=== PATIENT | male | born 1965 | race Caucasian/White ===

== ENCOUNTER 2017-12-29 01:46 | Inpatient (IN) | payer OTHER, BC ==
[2017-12-28 13:36] LABS: INR 1.04
[2017-12-29] VITALS (10 sets, daily range): BP systolic 104–143; BP diastolic 75–91
[~2017-12-29] VITALS: Ht 177.8 cm; Wt 108.9 kg
[~2017-12-29 01:46] MED LIST: AMLO-104 PO; HYDR-2966 PO; LEVO200T44 PO
[2017-12-29] MEDS: NORMOSOL R SOLN(*) 1000 ML BAG 1,000 ML IV PRN ×2 (07:40→16:30)
[2017-12-29] MEDS ORDERED: PROPOFOL EMUL(*) 10MG/ML 20 ML 40 ML ONE (08:31)
[2017-12-29] MEDS ORDERED: LIDOCAINE MPF 1% 5 ML VIAL ONE (08:31)
[2017-12-29] MEDS ORDERED: ONDANSETRON 4 MG/2 ML VIAL ONE (08:31)
[2017-12-29] MEDS ORDERED: METOCLOPRAMIDE 10 MG/2 ML SDV ONE (08:31)
[2017-12-29] MEDS ORDERED: DEXAMETHASONE SOD 4 MG/ML VIAL ONE (08:31)
[2017-12-29] MEDS ORDERED: fentaNYL CITR 100 MCG/2 ML AMP ONE ×3 (08:32→14:48)
[2017-12-29] MEDS ORDERED: cloNIDine EPIDUR INJ 100MCG/ML 40 MCG, ROPIVACAINE 0.5% 20 ML VIAL 25 ML, EPINEPHrine H... INJ ONE ×2 (08:50)
[2017-12-29] MEDS ORDERED: MIDAZOLAM 2 MG/2 ML VIAL IVP PRN (08:50)
[2017-12-29] MEDS ORDERED: TRANEXAMIC AC 1000 MG/10ML SDV 1,000 MG in DEXTROSE 5% 50 ML BAG 50 ML IV ONE (08:50)
[2017-12-29] MEDS ORDERED: ACETAMINOPHEN 500 MG TAB PO ONE (08:50)
[2017-12-29] MEDS ORDERED: LIDOCAINE/SOD BICARB 8.4% SYR ID ONE (08:50)
[2017-12-29] MEDS ORDERED: PREGABALIN 150 MG CAPSULE PO ONE (08:50)
[2017-12-29] MEDS ORDERED: CELECOXIB 200 MG CAP PO ONE (08:50)
[2017-12-29] MEDS ORDERED: FAMOTIDINE 20 MG TAB PO ONE (08:50)
[2017-12-29] MEDS ORDERED: ceFAZolin(*) 2GM/D5W 50ML 50 ML IVPB ONE (08:50)
[2017-12-29] MEDS ORDERED: PHENYLEPHRINE 10 MG/1 ML VIAL ONE (09:58)
[2017-12-29] MEDS ORDERED: NS(*) 0.9% 100 ML BAG 0 ML ONE (09:59)
[2017-12-29] MEDS ORDERED: ePHEDrine 25 MG/5 ML DISP.SYR IVP ONE (10:16)
[2017-12-29] MEDS ORDERED: PROMETHAZINE 25 MG/ML 1 ML AMP IVP PRN (14:30)
[2017-12-29] MEDS ORDERED: ZOLPIDEM TARTRATE 5 MG TAB PO PRN (14:30)
[2017-12-29] MEDS ORDERED: NORMOSOL R SOLN(*) 1000 ML BAG 1,000 ML IV PRN (14:30)
[2017-12-29] MEDS ORDERED: FLUSH 10 ML SYR IVP PRN (14:30)
[2017-12-29] MEDS ORDERED: MORPHINE 2 MG/ML SYR IVP PRN (14:30)
[2017-12-29] MEDS ORDERED: NALOXONE HCL 0.4 MG/ML VIAL IVP PRN (14:30)
[2017-12-29] MEDS ORDERED: MAGNESIUM HYDROXIDE* 30ML UDCP PO PRN (14:30)
[2017-12-29] MEDS ORDERED: BISACODYL 10 MG SUPP PR PRN (14:30)
[2017-12-29] MEDS ORDERED: KETOROLAC 30 MG/ML VIAL ONE (14:49)
[2017-12-29] MEDS ORDERED: HYDROmorphone HCL 2 MG/ML SDV ONE (15:07)
--- NOTE | 2017-12-29 15:15 | RADIOLOGY IMAGING REPORT ---
FACILITY: [facility] PATIENT NAME: Uriah Fang : 1965 MR: [id number] V: [id number] EXAM DATE: ORDERING PHYSICIAN: GLENNA BOWERS TECHNOLOGIST: Location: [facility] [place] Patient: Uriah Fang : 1965 Visit/Account:[id number] Date of Sevice: 12/29/2017 Technique: KNEE 1 OR 2 VIEW BILATERAL HISTORY: S/P BILATERAL TOTAL KNEE ARTHROPLASTY NEED A P Comparison studies: Right knee MRI May 02, 2009 report FINDINGS: Present are bilateral knee arthroplasties. The alignment of the right and left knee arthro plasties are maintained. No acute fracture. Expected adjacent operative changes are present. IMPRESSION: 1. Bilateral knee arthroplasties without evidence of acute hardware complication.. Report Dictated By: Wilton Patel DO at 12/29/2017 3:10 PM Report E-Signed By: Wilton Patel DO at 12/29/2017 3:12 PM WSN:[id number]
[2017-12-29] MEDS ORDERED: ACETAMINOPHEN(*)1000 MG/100 ML 100 ML IVPB ONE (16:42)
--- NOTE | 2017-12-29 17:25 | Hospitalist Consultation ---
History of Present Illness Requesting Physician Dr. Palma Reason for Consult Medical Management Chief Complaint s/p bilateral knee replacement History of Present Illness He was admitted s/p bilateral knee replacement. It is reported the surgery went well and without complication. History Problems: (1) Hypothyroidism Status: Chronic (2) Hypertension Status: Chronic Home Meds Reported Medications Amlodipine Besylate (NORVASC) 10 Mg Tablet, 1 TAB PO QDAY, TAB 12/24/17 Levothyroxine Sodium (SYNTHROID) 200 Mcg Tablet, 200 MCG PO QDAY 12/24/17 Hydrochlorothiazide (HYDROCHLOROTHIAZIDE) 25 Mg Tablet, 0.5 TAB PO QDAY, TAB 12/24/17 Allergies: Coded Allergies: No Known Drug Allergies (Unverified , 12/24/17) Hx Smoking: No Smoking Status: Never Smoker Caffeine/Cups Per Day: OCCASIONAL Hx Alcohol Use: Yes Alcohol Used: Beer Hx Substance Use Disorder: No Social Drug Use: Never History of IV Drug Use: No Review of Systems All Systems Reviewed/Normal: Yes, Except as Noted Musculoskeletal: Pain (right knee pain) Exam Vital Signs Vital Signs Date Time Temp Pulse Resp B/P (MAP) Pulse Ox O2 Delivery O2 Flow Rate FiO2 12/29/17 15:30 77 14 96 12/29/17 08:32 98.6 143/84 (103) Room Air General Appearance: Alert, Awake, No Acute Distress, Afebrile Neuro: No Gross deficits Cardiovascular: Regular Rate and Rhythm Respiratory: No Respiratory Distress, Clear to Auscultation Psych: Alert & Oriented X3, Appropriate Mood & Affect Assessment and Plan Problems: (1) Status post bilateral knee replacements Status: Acute Assessment & Plan: Followed by Dr. Palma. He has no history of DVT or PE. He will be placed on Aspirin 325 mg daily for DVT prophylaxis. (2) Hypertension Status: Chronic Assessment & Plan: He is on chronic treatment with amlodipine and hydrochlorothiazide. He will be started on amlodipine with hold parameters. We will hold hydrochlorothiazide at this time. (3) Hypothyroidism Status: Chronic Assessment & Plan: He is on chronic treatment with levothyroxine. Venous Thromboembolism Antithrombotics Is Pt On Any Antithrombotics?: No Problem Qualifiers (1) Hypertension: Hypertension type: essential hypertension Qualified Codes: I10 - Essential ( primary) hypertension CARLEEN AGUIRRE YOUTH CARE WORKER Dec 29, 2017 17:25
[2017-12-29] MEDS: ceFAZolin(*) 2GM/D5W 50ML 50 ML IVPB SCH (17:32)
[2017-12-29] MEDS: MORPHINE SULFATE 30 MG PCA IV PRN (18:03)
[2017-12-30] MEDS: ACETAMINOPHEN 500 MG TAB PO SCH ×3 (00:40→17:41)
[2017-12-30] MEDS: ceFAZolin(*) 2GM/D5W 50ML 50 ML IVPB SCH ×2 (00:40→08:35)
[2017-12-30] MEDS: KETOROLAC TROM 10MG TAB PO PRN ×2 (01:27→10:09)
[2017-12-30] MEDS: ONDANSETRON 4 MG/2 ML VIAL IVP PRN ×2 (01:27→16:23)
--- NOTE | 2017-12-30 04:24 | OPERATIVE REPORT 1 ---
EVENT DATE: December 29, 2017 SURGEON: Robert Palma MD ANESTHESIOLOGIST: Evens Juares MD ANESTHESIA: Spinal followed by general. COMMUNITY WORKER: Sandro Bang PA-C PREOPERATIVE DIAGNOSIS Left knee traumatic degenerative joint disease. POSTOPERATIVE DIAGNOSIS Left knee traumatic degenerative joint disease. PROCEDURE PERFORMED Left total knee arthroplasty. IMPLANTS MicroPort medial pivot shift CS system with a 5 femur, 6 tibia, 10 mm CS insert , 8 x 32 mm symmetric patella, femur cut 6 degrees valgus, 10 mm. Patient received 1 gram of tranexamic acid 10 minutes prior to start and at the finish of the second knee implantation. We used DonJoy cobalt blue cement, two packages. We utilized 50 mL of our standard Toradol/ropivacaine cocktail and ZipLine wound closure system. SPECIMENS None. COMPLICATIONS None. ESTIMATED BLOOD LOSS Less than 200 mL. OPERATION Patient received appropriate preoperative antibiotic, was brought to the OR, where Dr. Juares performed spinal followed by general anesthesia. Bilateral lower extremities were then prepped and draped in the usual sterile fashion. Starting at the left knee, we made a midline incision, followed by medial parapatellar arthrotomy. Dissection was carried out along the medial plateau to the level of the semimembranosus insertion. Fat pad excised, patella released and everted. Knee hyperflexed. ACL and PCL released subperiosteally by Bovie. Remaining articular cartilage was removed from the distal femoral condyles by sagittal saw, then a step cut drill was utilized to broach the femoral canal. Distal femoral alignment guide was then positioned, and cutting block set up at 6 degrees valgus, 10 mm. Appropriate retractors were placed, distal cut made. A 3 degree external rotation sizing guide was then placed, referencing off the anterior flange, epicondyles, posterior condyles. Femur was sized to a #5, and external rotation holes were drilled. The 4-in-1 cutting block was positioned followed by Z retractors and four cuts made with care taken to protect the soft tissue. Tibia was brought anteriorly on the femur with appropriate retractors. We then utilized an extramedullary guide, setting this up for slope, varus, valgus and rotation, referencing 10 mm off the least involved lateral tibial plateau. This block was pinned in placed, and with care taken to protect the soft tissues, we made our tibial cut. Stump of the ACL and PCL and medial and lateral meniscus were removed by Bovie. Posterior osteophytes were removed by curved osteotome, and capsule elevated by a Reaves elevator. Trial tibial base positioned, referencing from the previous rotation , pinned into placed. We then took a 10 mm insert, then our #5 femur. We achieved extension, flexion to 140 degrees, stability through varus, valgus stress, and solid end point and anterior drawer. Knee brought up in full extension. Patella was measured, and we cut down 8 mm with the guide. Peg hold guide was positioned inferiorly medially, peg holes drilled for a 32 x 8 symmetric patella. Trial patella placed, knee flexed and peg holes drilled, followed by our pegs. We cut for our trochlear chip, which was then placed. Again we had the aforementioned range of motion and stability. Patella tracked well. Patella, femur, trial tibial base plate were removed. Appropriate retractors were placed. We set up our tower for our keel. This was then cut, reamed and punched. This construct was then removed, bone plug placed in the distal femur, and then we mixed two packages of DonJoy cobalt blue cement while we injected 10 mL of our cocktail into the posterior capsule, then copiously irrigated by pulse lavage. Then, setting up the knee, we cemented the tibia, followed by our 10 mm insert, then our femur. Excess cement was removed. Knee brought up to full extension with axial compression while we cemented the patella, and this took approximately 15 minutes to cure. Again, we had the aforementioned range of motion and stability. We copiously irrigated by pulse lavage and injected the remaining cocktail in the distal quad mechanism. Knee placed at 30 degrees as we had at the approach, and arthrotomy closed with #2 Vicryl followed by 2-0 Vicryl for subcutaneous tissues and ZipLine wound closure for skin at 45 degrees. A compressive dressing was applied. This dressing was protected through the remaining portion of the procedure, which was a right total knee. After that was completed, patient was extubated and taken to recovery in stable condition, where the hospitalist team was consulted for medical management and anticoagulation, PT and OT for rehab. RUBA
[2017-12-30 05:40] VITALS: BP 106/72
[2017-12-30] MEDS: LEVOTHYROXINE SOD 0.1 MG TAB PO SCH (05:45)
[2017-12-30 07:32] VITALS: BP 97/74
[2017-12-30] MEDS: amLODIPine BESYL(*) 5 MG TAB PO SCH (08:34)
[2017-12-30] MEDS: ASPIRIN 325 MG TAB PO SCH (08:34)
--- NOTE | 2017-12-30 09:58 | Hospitalist Progress Note ---
Subjective Progress Notes Subjective He has no concerns this morning. He had no acute events overnight. Patient Complains of: Cardiovascular: No: Chest Pain Respiratory: No: Shortness of Breath Physical Exam Vital Signs Date Time Temp Pulse Resp B/P (MAP) Pulse Ox O2 Delivery O2 Flow Rate FiO2 12/30/17 09:31 16 94 12/30/17 07:45 Nasal Cannula 1.0 12/30/17 07:32 99.1 79 97/74 (82) Intake and Output 12/31/17 06:59 Intake Total 832 ml Balance 832 ml Intake Oral 240 ml IV Total 592 ml General Appearance: Alert, Awake, No Acute Distress, Afebrile Neuro: No Gross deficits Cardiovascular: Regular Rate and Rhythm Respiratory: No Respiratory Distress, Clear to Auscultation Psych: Alert & Oriented X3, Appropriate Mood & Affect Result Diagram: 12/30/17 0555 Assessment and Plan Problems: (1) Status post bilateral knee replacements Status: Acute Assessment & Plan: Followed by Dr. Palma. He has no history of DVT or PE. He will be placed on Aspirin 325 mg daily for DVT prophylaxis. (2) Hypertension Status: Chronic Assessment & Plan: He is on chronic treatment with amlodipine and hydrochlorothiazide. He will be started on amlodipine with hold parameters. We will hold hydrochlorothiazide at this time. Watch BP's. (3) Hypothyroidism Status: Chronic Assessment & Plan: He is on chronic treatment with levothyroxine. Exam Sepsis Risk: No Definite Risk Problem Qualifiers (1) Hypertension: Hypertension type: essential hypertension Qualified Codes: I10 - Essential ( primary) hypertension CARLEEN AGUIRRE PHILOSOPHY SPECIALIST Dec 30, 2017 09:58
[2017-12-30 11:01] VITALS: BP 115/72
--- NOTE | 2017-12-30 11:39 | OPERATIVE REPORT 1 ---
EVENT DATE: December 29, 2017 SURGEON: Robert Palma MD ANESTHESIOLOGIST: Evens Juares MD ANESTHESIA: Spinal followed by general. CERTIFIED SCRUM MASTER: Sandro Bang PA-C PREOPERATIVE DIAGNOSIS Right knee traumatic degenerative joint disease. POSTOPERATIVE DIAGNOSIS Right knee traumatic degenerative joint disease. PROCEDURE PERFORMED Right total knee arthroplasty. IMPLANTS MicroPort medial pivot shift CS system with a 5 femur, 6 tibia, 10 mm CS insert , 8 x 32 mm symmetric patella, femur cut 6 degrees valgus, 10 mm. We utilized 1 gram of tranexamic acid 10 minutes prior to start of the left total knee and after we finished the implantation on the right knee we gave the second gram of TXA. We utilized two packages of DonJoy cobalt blue cement, ZipLine wound closure system and 50 mL of our standard Toradol/ropivacaine cocktail. SPECIMENS None. COMPLICATIONS None. ESTIMATED BLOOD LOSS Less than 200 mL. OPERATION Patient received appropriate preoperative antibiotic, was brought to the OR, where Dr. Juares performed spinal followed by general anesthesia. Left total knee arthroplasty was performed. We then started with the right knee, where we made a midline incision, followed by medial parapatellar arthrotomy. Dissection was carried out subperiosteally to the level of the semimembranosus insertion. Fat pad was excised, patella released and everted. Knee brought up in hyperflexion. ACL and PCL released subperiosteally by Bovie. Remaining articular cartilage was removed by sagittal saw, and step cut drill utilized to broach the femoral canal. Distal femoral cut was set up at 6 degrees valgus, 10 mm. With care taken to protect the soft tissue, distal cut was made. A 3 degree external rotation sizing guide was then positioned, referencing off the anterior flange, epicondyles, posterior condyles. Femur was sized to a #5, and 3 degree external rotation holes drilled. Z retractors placed, 4-in-1 cutting block positioned. We made our four cuts. Tibia was brought anteriorly on the femur and we set up our extramedullary tibial guides, referencing for slope, varus, valgus and rotation, referencing 10 mm off the least involved lateral tibial plateau. Cutting block was pinned, and with care taken to protect the soft tissues, we made our tibial cut. Stump of the ACL and PCL and medial and lateral meniscus were removed by Bovie. Posterior osteophytes were removed by curved osteotome, followed by elevation of the capsule with a Reaves elevator. Trial tibial base was positioned, pinned in place, referencing from the previous rotation. 10 mm insert was placed, then our #5 femur. We achieved full extension, flexion to 140 almost 145 degrees, limited only by body habitus. It was stable through varus, valgus stress. He had solid end point and anterior drawer. Knee was brought up in full extension. Patella guide was positioned for 8 mm cut, and this was performed, and was sized to a 32 x 8, and peg hold trial was positioned inferiorly medially and peg holes drilled. This accepted our trial. Peg holes were drilled for the femur, which were then placed, and we cut for our trochlear chip, which was then placed. Again we had the aforementioned range of motion and stability. Patella tracked well. Patella, femur, tibial insert were removed. Appropriate retractors were placed. We set up our tibial tower. We cut, reamed and punched for our keel. The instrumentation was removed. Bone plug placed in the distal femur. Knee brought out in full extension. We copiously irrigated by pulse lavage and injected 10 mL of our cocktail into the posterior capsule while two packages of [place] blue cement were mixed. We brought the knee up into appropriate position , irrigating copiously by pulse lavage and drying the bone. Then, starting at the tibia, this was cemented into place, followed by our 10 mm insert, then our #5 femur. Excess cement was removed. Knee brought up to full extension with axial compression while we cemented the patella. It took 15 minutes for the cement to cure, then we had the aforementioned range of motion and stability. We copiously irrigated by pulse lavage and injected the remaining cocktail into the distal quad mechanism. Arthrotomy was closed with #2 Vicryl followed by 2- 0 Vicryl for subcutaneous tissues, ZipLine wound closure for skin at 45 degrees. Dressing was applied. Patient was extubated and taken to recovery in stable condition. Hospitalist team will be consulted for medical management and anticoagulation. RUBA
[2017-12-30] MEDS: MORPHINE SULFATE 30 MG PCA IV PRN (13:49)
[2017-12-30 14:06] VITALS: Ht 177.8 cm; Wt 108.9 kg
[2017-12-30 15:17] VITALS: BP 126/75
[2017-12-30 19:38] VITALS: BP 106/64
[2017-12-30 23:51] VITALS: BP 107/83
[2017-12-31] VITALS (7 sets, daily range): BP systolic 111–129; BP diastolic 76–96
[2017-12-31] MEDS: KETOROLAC TROM 10MG TAB PO PRN (01:14)
[2017-12-31] MEDS: ACETAMINOPHEN 500 MG TAB PO SCH ×3 (01:14→16:25)
[2017-12-31] MEDS: LEVOTHYROXINE SOD 0.1 MG TAB PO SCH (06:25)
[2017-12-31] MEDS: MORPHINE SULFATE 30 MG PCA IV PRN (06:43)
[2017-12-31] MEDS: ASPIRIN 325 MG TAB PO SCH (08:29)
[2017-12-31] MEDS: amLODIPine BESYL(*) 5 MG TAB PO SCH (08:30)
--- NOTE | 2017-12-31 09:30 | Hospitalist Progress Note ---
Subjective Progress Notes Subjective He has no concerns this morning. He had no acute events overnight. Patient Complains of: Cardiovascular: No: Chest Pain Respiratory: No: Shortness of Breath Physical Exam Vital Signs Date Time Temp Pulse Resp B/P (MAP) Pulse Ox O2 Delivery O2 Flow Rate FiO2 12/31/17 08:26 91 12/31/17 08:19 Nasal Cannula 1.0 12/31/17 08:01 98.3 85 18 120/86 (97) Intake and Output 01/01/18 06:59 Intake Total 900 ml Balance 900 ml Intake Oral 900 ml General Appearance: Alert, Awake, No Acute Distress, Afebrile Neuro: No Gross deficits Cardiovascular: Regular Rate and Rhythm Respiratory: No Respiratory Distress, Clear to Auscultation Psych: Alert & Oriented X3, Appropriate Mood & Affect Result Diagram: 12/31/17 0526 Assessment and Plan Problems: (1) Status post bilateral knee replacements Status: Acute Assessment & Plan: Followed by Dr. Palma. He has no history of DVT or PE. He will be placed on Aspirin 325 mg daily for DVT prophylaxis. (2) Hypertension Status: Chronic Assessment & Plan: He is on chronic treatment with amlodipine and hydrochlorothiazide. He will be started on amlodipine with hold parameters. We will hold hydrochlorothiazide at this time. Watch BP's. (3) Hypothyroidism Status: Chronic Assessment & Plan: He is on chronic treatment with levothyroxine. Exam Sepsis Risk: No Definite Risk Problem Qualifiers (1) Hypertension: Hypertension type: essential hypertension Qualified Codes: I10 - Essential ( primary) hypertension CARLEEN AGUIRRE Dec 31, 2017 09:30
[2017-12-31] MEDS: CALCIUM CARBONATE 500 MG CHEW PO PRN ×3 (11:16→19:26)
[2018-01-01] MEDS: oxyCODONE HCL 5 MG CAP PO PRN ×3 (00:42→10:09)
[2018-01-01] MEDS: ACETAMINOPHEN 500 MG TAB PO SCH ×2 (00:42→10:08)
[2018-01-01] MEDS: ONDANSETRON 4 MG/2 ML VIAL IVP PRN ×3 (00:42→12:51)
[2018-01-01] MEDS: KETOROLAC TROM 10MG TAB PO PRN (00:55)
[2018-01-01 05:55] VITALS: BP 113/83
[2018-01-01] MEDS: LEVOTHYROXINE SOD 0.1 MG TAB PO SCH (05:58)
[2018-01-01 07:59] VITALS: BP 117/84
[2018-01-01] MEDS: amLODIPine BESYL(*) 5 MG TAB PO SCH (09:00)
[2018-01-01] MEDS ORDERED: RIVAROXABAN 10 MG TAB PO SCH (09:35)
--- NOTE | 2018-01-01 10:39 | Hospitalist Progress Note ---
Subjective Progress Notes Subjective He has no concerns this morning. He had no acute events overnight. Patient Complains of: Cardiovascular: No: Chest Pain Respiratory: No: Shortness of Breath Physical Exam Vital Signs Date Time Temp Pulse Resp B/P (MAP) Pulse Ox O2 Delivery O2 Flow Rate FiO2 01/01/18 07:59 98.3 84 14 117/84 (95) 93 01/01/18 05:55 Nasal Cannula 1.5 Intake and Output 01/02/18 06:59 Intake Total 0 ml Output Total 200 ml Balance -200 ml Intake Oral 0 ml Output Urine Total 200 ml # Voids 1 General Appearance: Alert, Awake, No Acute Distress, Afebrile Neuro: No Gross deficits Cardiovascular: Regular Rate and Rhythm Respiratory: No Respiratory Distress, Clear to Auscultation GI: Soft and Non-Tender Psych: Alert & Oriented X3, Appropriate Mood & Affect Result Diagram: 01/01/18 0505 Assessment and Plan Problems: (1) Status post bilateral knee replacements Status: Acute Assessment & Plan: Followed by Dr. Palma. He has no history of DVT or PE. We will switch him to Xarelto for DVT prophylaxis today, secondary to decreased mobility. He will go to [facility] today for further rehab. (2) Hypertension Status: Chronic Assessment & Plan: He is on chronic treatment with amlodipine and hydrochlorothiazide. He will continue amlodipine with hold parameters. We will hold hydrochlorothiazide. Watch BP's. (3) Hypothyroidism Status: Chronic Assessment & Plan: He is on chronic treatment with levothyroxine. Exam Sepsis Risk: No Definite Risk Problem Qualifiers (1) Hypertension: Hypertension type: essential hypertension Qualified Codes: I10 - Essential ( primary) hypertension CARLEEN AGUIRRE WELDER GUN Jan 01, 2018 10:39
== END 2018-01-01 13:34 | DRG 462 ==
LOC: OR 01:46 → INTOOBSV 17:10 → MED 17:10 → OBSVTOIN 17:10 → UNDODISIN 01-01 13:34
PROVIDERS: ADMIT Orthopaedic Surgery; ATTEND Orthopaedic Surgery
PROC: 0SRC0J9 Replacement of Right Knee Joint with Synthetic Substitute, Cemented, Open Approach (ICD-10-PCS; 2017-12-29)
PROC: 0SRD0J9 Replacement of Left Knee Joint with Synthetic Substitute, Cemented, Open Approach (ICD-10-PCS; principal; 2017-12-29 10:09)
DX: M17.2 Bilateral post-traumatic osteoarthritis of knee (principal); I10 Essential (primary) hypertension; E03.9 Hypothyroidism, unspecified
CPT/HCPCS: 36415; 85014; 85018; 85610; 86850; 86900; 86901; 97161; J0131; J0690; J1100; J1170; J1885; J2001; J2250; J2270; J2370; J2405; J2550; J2704; J2765; J3010; J7050; J7060

== ENCOUNTER 2018-01-01 13:35 | Inpatient (IN) | payer OTHER, BC ==
[2017-12-30 14:06] VITALS: Ht 177.8 cm; Wt 110.2 kg
[~2018-01-01] VITALS: Ht 177.8 cm; Wt 110.2 kg
[2018-01-01] MEDS ORDERED: KETOROLAC TROM 10MG TAB PO PRN (13:50)
[2018-01-01] MEDS ORDERED: CALCIUM CARBONATE 500 MG CHEW PO PRN (13:50)
[2018-01-01] MEDS ORDERED: ONDANSETRON 4 MG ODT TABDP SL PRN (13:55)
[2018-01-01 14:00] VITALS: BP 139/78
[2018-01-01] MEDS: MAGNESIUM HYDROXIDE* 30ML UDCP PO PRN ×2 (14:14→22:40)
--- NOTE | 2018-01-01 16:39 | Medical Nutrition Therapy ---
Nutrition Anthropometrics Height (Inches): 70 (stated) Weight (Pounds): 250 (was 240 on standing scale 6/5 prior to surgery) Weight (Calculated Kilograms): 113.398 BMI: 36 Jayson Nutrition Score: Jayson Nutrition Risk Score: Dietary Referral Nutrition Risk Factors: Nutrition Risk Comment: Physical Findings Physical Appearance: Obese BMI 30-39 Skin Appearance Skin Appearance: Edema Edema Location Modifier: Edema Location: Type of Edema: Degree of Edema: Gastrointestinal Symptoms GI Symtoms: Nausea, Constipation Tube Present: Bowel Sounds: Recent Bowel Pattern: Constipated Stool Characteristics: Nutritional Diagnosis Nutritional Risk Acuity 3: Fair Appetite, Nausea Past Medical History: Hypothyroid, HTN, s/p bilateral knee replacement Nutritional Acuity: 3-Mild Nutrition Diagnosis: Increased Nutrient Needs Nutrition Etiology: Physiological Causes Nutrition Problem/Etiology/Sym: AEB dx bilateral knee replacement Adjusted Energy Requirement Re: 2440 (HB- adj for obesity X 1.1 SF) Protein Requirement: 93 (1.2gm/kg IBW) Fluid Requirement: 2825 (25ml/kg) Diet Type: Diet as Tolerated DRE/REG Nutrition Intervention: Cont diet as ordered, Encourage intake, HS snack Nutrition Monitoring & Eval Nutrition Goals: Eat 75-100% Meal RD Patient Assessment Time: [address] Assessment Type: RD Screen Patient Nutrition Acuity: 3-Mild Follow Up Date: Jan 06, 2018 Nutritional Comment: 6/7 Pt admitted post bilateral knee replacement. Intake averaged 58% on med unit with nausea reported. Wt is up 10# in 2 day post surgery. Probably associated with fluild recieved post surgery or difference in scale. Anticipate pt loss to pt's admitting wt of 240#. Will cont to monitor and encourage intake. JIGAR ROSA Jan 01, 2018 16:39
[2018-01-01] MEDS: ACETAMINOPHEN 500 MG TAB PO SCH (17:16)
[2018-01-01] MEDS: oxyCODONE HCL 5 MG CAP PO PRN (22:40)
[2018-01-01] MEDS: BISACODYL 10 MG SUPP PR PRN (23:48)
[2018-01-02] MEDS: ACETAMINOPHEN 500 MG TAB PO SCH ×3 (01:21→17:47)
[2018-01-02] MEDS: PROMETHAZINE HCL 25 MG TAB PO PRN ×3 (05:26→20:48)
[2018-01-02] MEDS: LEVOTHYROXINE SOD 0.1 MG TAB PO SCH (05:27)
[2018-01-02] MEDS: amLODIPine BESYL(*) 5 MG TAB PO SCH (08:44)
--- NOTE | 2018-01-02 08:44 | OT ECF NOTE ---
Type of Note: Initial Note Primary Medical Diagnosis: Bilateral Total Knee Replacement DOS: 12/29/[address] Palma Occupational Therapy Evaluation Date: 01/02/18 SUBJECTIVE: Prior Hospitalization: [facility] Med/Surg 12/29/17 thru 01/01/18 Prior Level of Function: Independent with all ADLs/IADLs. Currently working and helping care for 8 year old son and 80 year old mother. Prior Living Status: Single level house, Living with family Community Services: No known needs Home Accessibility: Stairs with rails All needs on one level Tub/shower combination Equipment Owned: Front wheeled walker Toilet riser Medical Complications/Past Medical History: Hypertension, Hypothyroidism Psychosocial Support: Family in [place], [place] where pt resides Pain Scale (0-10): 9/10 in bilateral knees upon initiation evaluation. Nursing informed and addressing. OBJECTIVE: Strength: MMT: Right Left Shoulder Flexion WFL WFL Elbow Flexion WFL WFL Wrist Extension WFL WFL Fast Food Restaurant Manager WFL WFL (5= normal, 4= good, 3= fair, 2= poor, 1= trace) ROM: Both upper extremities, WFL Sensation: Intact, No concerns Functional Transfer: Assistive Device: Front wheeled walker, Gait belt Transfer Ability: Minimum assistance, 1-person assist ADL: Upper body dressing: Assistive device: None Upper body dressing ability: Set-up Lower body dressing: Assistive device: Pt will benefit from LB AE education Lower body dressing ability: Maximum assistance Toileting: Assistive device: Raised toilet seat, grab bars Toileting ability: Moderate assistance Grooming/hygiene: Assistive device: Grooming ability: N/T Bathing: Assistive device: Bathing ability: N/T Standardized Assessment: La Index of Activities of Daily Livin20 at initial evaluation (01/02). ASSESSMENT: At [facility], Uriah was (I) with all ADLs/IADLs including working and caring for family. Currently, he requires increased assist for all ADLs/IADLs and functionals mobility. He will benefit from skilled OT intervention to optimize independence with ADLs/IADLs and tolerance for functional mobility prior to discharge home where he serves as the primary caregiver for family. Problem List/Current Limitations: Pain Decreased ROM Short Term Goals: 1) Pt will be Mod (I) UB/LB dressing. 2) Pt will be Mod (I) toileting. 3) Pt will be (I) grooming/hygiene. 4) Pt will be Mod (I) bathing. 5) Pt La Index of ADLs score will improve by 2 points. Marker Hand Goals: Return home with outpatient PT Patient Goals: "Move better" Rehabilitation Prognosis: Good Barriers to Discharge: Pain PLAN: The patient will benefit from skilled occupational therapy services 5 times per week for 2 weeks including: Ther ex ADL training Safety training Ther act IADL training Transfer training Adaptive equip training Bed mobility Energy conservation Thank you for this referral. If you have any questions, concerns, or comments about this report or plan, please contact me at . Yuridia Laura MS, OTR/L Occupational Therapist RUBA
[2018-01-02] MEDS: RIVAROXABAN 10 MG TAB PO SCH (08:45)
[2018-01-02] MEDS: BISACODYL 10 MG SUPP PR PRN (08:45)
[2018-01-02] MEDS: DOCUSATE SODIUM 100 MG CAP PO SCH ×2 (08:45→20:17)
[2018-01-02] MEDS: MAGNESIUM HYDROXIDE* 30ML UDCP PO PRN (09:11)
[2018-01-02 09:55] VITALS: BP 124/82
[2018-01-02] MEDS: oxyCODONE HCL 5 MG CAP PO PRN ×2 (14:21→22:03)
--- NOTE | 2018-01-02 14:44 | PT ECF NOTE ---
Type of Note: Initial Note Primary Medical Diagnosis: B TKA 12/29/[address] Palma Physical Therapy Evaluation Date: 01/02/2018 SUBJECTIVE: Prior Hospitalization: [facility] 12/29-01/01/18 Prior Level of Function: Independent with functional mobility, ADLs, and IADLs. 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 Prior Living Status: Single level house, Living with family Community Services: No known needs Home Accessibility: Stairs with rails, All needs on one level, Tub/shower combination Equipment Owned: Front wheeled walker, Toilet riser Medical Complications/Past Medical History: Please see EMR Psychosocial Support: unknown Pain Scale (0-10): elevated pain at time of eval. Pt not feeling well, minimal inquiry about pain level at this time. OBJECTIVE: Strength: Bilateral Lower Extremities: Overall decreased strength due to B TKA ROM: (please note any abnormalities) significantly decreased B knee ROM due to B TKA Bed Mobility: Mod A for B LEs Assistive device: Bed rail, Head of bed elevated Transfers: CGA from elevated bed, bed used to position Pt in near standing position. Pt also stood from elevated commode. Assistive Device: Front wheeled walker Gait: 3' from bed<>commode Assistive device: From wheeled walker ASSESSMENT: Pt presents with decreased independence with functional mobility compared to prior level of function following B TKA. Pt will benefit from skilled PT for ROM, strengthening, and functional mobility training in order to return home at Mod I level. Problem List/Current Limitations: Pain, Decreased activity tolerance, Decreased strength, Decreased ROM, Decreased balance Short Term Goals: 1. Mod I bed mobility. 2. Mod I transfers. 3. Mod I gait x 150' with appropriate assistive device. 4. Ascend/descend 4 stairs SBA. 5. Independent use of CPM. Enamel Sprayer Goals: Return home at Mod I level. Patient Goals: Return home as independent as possible. Rehabilitation Prognosis: Good Barriers for Discharge: none identified at this time. PLAN: The patient will benefit from skilled physical therapy services 5 times per week for 2 weeks including: Therapeutic Exercise, Therapeutic Activities, Transfer Training, Gait Training, Stair Training, Manual Therapy, ADL's, Safety Training, Neuromuscular Re-educ., Pt/Caregiver Training, Bed Mobility Thank you for this referral. If you have any questions, concerns, or comments about this report or plan, please contact me at . Mary Calle, PT, DPT, GCS MTDD
--- NOTE | 2018-01-02 14:55 | RADIOLOGY IMAGING REPORT ---
[place] [facility] [place] Uriah Fang : 1965 MR: [id number] V: [id number] EXAM DATE: ORDERING PHYSICIAN: ALEXIS VARGAS TECHNOLOGIST: Location: [facility] [place] Patient: Uriah Fang : 1965 Visit/Account:[id number] Date of Sevice: 01/02/2018 KUB SINGLE VIEW ABDOMEN HISTORY: Extreme pain in abdomen, constipation COMPARISON: None. FINDINGS: There is a nonspecific bowel gas pattern with distended but nondilated loops of small and large intes tyrone without evidence of free air or pneumatosis. Stool burden appears minimal. IMPRESSION: 1. There is gaseous distention without khalif dilation of small and large intestine with a normal sto ol burden. There is no evidence of free air or other acute pathology. The findings could be seconda ry to ileus. Further evaluation if needed is suggested with a contrast-enhanced CT. Report Dictated By: Corona Reich MD at 01/02/2018 2:49 PM Report E-Signed By: Corona Reich MD at 01/02/2018 2:52 PM WSN:[id number]
[2018-01-02 20:20] VITALS: BP 130/69
[2018-01-03] MEDS: ACETAMINOPHEN 500 MG TAB PO SCH ×3 (01:34→17:20)
[2018-01-03] MEDS: oxyCODONE HCL 5 MG CAP PO PRN ×2 (05:32→11:09)
[2018-01-03] MEDS: LEVOTHYROXINE SOD 0.1 MG TAB PO SCH (05:32)
[2018-01-03 07:45] VITALS: BP_SYST 139; BP_SYST 152; BP_DIAS 74; BP_DIAS 95
[2018-01-03] MEDS: POLYETHYLENE GLYCOL 17 GM PKT PO SCH (08:50)
[2018-01-03] MEDS: amLODIPine BESYL(*) 5 MG TAB PO SCH (08:51)
[2018-01-03] MEDS: RIVAROXABAN 10 MG TAB PO SCH (08:51)
[2018-01-03] MEDS: DOCUSATE SODIUM 100 MG CAP PO SCH ×2 (08:51→20:52)
[2018-01-03] MEDS ORDERED: MAGNESIUM CITRATE 300 ML BTL PO ONE (11:25)
[2018-01-03] MEDS: PROMETHAZINE HCL 25 MG TAB PO PRN (15:17)
[2018-01-03 16:00] VITALS: BP 132/70
[2018-01-03] MEDS ORDERED: NS(*) 0.9% 500 ML BAG 500 ML IV ONE (16:25)
[2018-01-04] MEDS: ACETAMINOPHEN 500 MG TAB PO SCH ×3 (01:00→17:19)
[2018-01-04] MEDS: PROMETHAZINE HCL 25 MG TAB PO PRN ×2 (06:06→11:14)
[2018-01-04] MEDS: LEVOTHYROXINE SOD 0.1 MG TAB PO SCH (06:35)
[2018-01-04 07:38] VITALS: BP 149/94
[2018-01-04] MEDS: oxyCODONE HCL 5 MG CAP PO PRN ×3 (07:38→21:23)
[2018-01-04] MEDS: RIVAROXABAN 10 MG TAB PO SCH (08:35)
[2018-01-04] MEDS: POLYETHYLENE GLYCOL 17 GM PKT PO SCH (08:35)
[2018-01-04] MEDS: DOCUSATE SODIUM 100 MG CAP PO SCH ×2 (08:35→21:23)
[2018-01-04] MEDS: amLODIPine BESYL(*) 5 MG TAB PO SCH (08:35)
[2018-01-04 09:57] LABS: PLATELET COUNT, AUTOMATED 310 K/uL (150-450)
[2018-01-04] MEDS ORDERED: IOPAMIDOL 76% 100 ML INFUS BTL 100 ML ONE (11:20)
[2018-01-04] MEDS ORDERED: NS 0.9% 25 ML BAG 25 ML ONE (11:21)
--- NOTE | 2018-01-04 12:03 | Hospitalist Progress Note ---
Subjective Progress Notes Subjective The patient continues to have abdominal distention, pain and nausea/vomiting. He has had aggressive treatment for constipation. KUB on 01/02 showed normal stool burden and possible ileus. Physical Exam Vital Signs Date Time Temp Pulse Resp B/P (MAP) Pulse Ox O2 Delivery O2 Flow Rate FiO2 01/04/18 07:38 98.9 92 18 149/94 (112) 91 Room Air 01/04/18 07:30 1.0 General Appearance: Alert, Awake, Other (Appears uncomfortable.) Neuro: No Gross deficits Eyes: PERRLA Cardiovascular: Regular Rate and Rhythm Respiratory: Clear to Auscultation GI: Other (Distended. BS +. Diffusely tender to light palpation.) Extremities: Warm, Perfused Psych: Appropriate Mood & Affect Result Diagram: 01/04/1894801/04/18948 Assessment and Plan Problems: (1) Abdominal pain Status: Acute Assessment & Plan: WBC elevated to 13K. Will order CT of abdomen with IV contrast to further evaluate. (2) Status post bilateral knee replacements Status: Acute Assessment & Plan: Followed by Dr. Palma. He has no history of DVT or PE. We will switch him to Xarelto for DVT prophylaxis today, secondary to decreased mobility. He has been transferred to [facility] for further rehab. (3) Hypertension Status: Chronic Assessment & Plan: He is on chronic treatment with amlodipine and hydrochlorothiazide. He will continue amlodipine with hold parameters. We will hold hydrochlorothiazide. Watch BP's. (4) Hypothyroidism Status: Chronic Assessment & Plan: He is on chronic treatment with levothyroxine. ELIF MCPHERSON MD Jan 04, 2018 12:02
--- NOTE | 2018-01-04 12:32 | RADIOLOGY IMAGING REPORT ---
[place] [facility] [place]ah [place] : 1965 MR: [id number] V: [id number] EXAM DATE: ORDERING PHYSICIAN: ELIF MCPHERSON TECHNOLOG[place] [facility] [place] : 1965 Visit/Account:[id number] Date of Sevice: 01/04/2018 CT abdomen and pelvis with IV contrast Indication: Abdominal pain. Elevated white blood cell count. Nausea and vomiting. Comparison: None available. . Technique: Axial CT images were obtained through the abdomen and pelvis during injection of nonioni c iodinated intravenous contrast. Reformatted coronal and sagittal images were also obtained. One of the following dose optimization techniques was utilized in the performance of this exam: Autom ated exposure control; adjustment of the mA and/or kV according to the patient's size; or use of an i terative reconstruction technique. Specific details can be referenced in the facility's radiology C T exam operational policy. Contrast: 100 ml of Isovue-370 IV contrast. Findings: Lower lung ladd: Limited views lower lung field are unremarkable. Liver: No focal parenchymal abnormality of the liver. Biliary: Gallbladder appears unremarkable as well as the intra and extra hepatic biliary system. Pancreas: Normal appearance. Spleen: Normal appearance. Adrenal glands: Unremarkable. Kidneys / retroperitoneum: No evidence of nephrolithiasis or hydronephrosis the left kidney does show subcentimeter hypodensity which is too small to characterize and statistically tiny cyst. No solid r enal lesions. Bowel / peritoneum / mesenteries: The terminal ileum is mildly thickened without focal abnormality. T here some mild haziness about the cecum and proximal ascending colon. These regions of the colon show s no wall thickening or other focal abnormality. The sigmoid colon show several diverticula without p ericolonic inflammation. The remaining colon shows no focal abnormality. The remaining small bowel sh ows no focal abnormality or obstruction. Stomach is unremarkable. Small amount of free fluid seen in the pelvis. No fluid collections, free air or areas of inflammatio n. Small umbilical hernia containing fat. Lymph node assessment: No pathologic adenopathy identified. Pelvic structures: Appear unremarkable. Vessels: No significant atherosclerotic calcifications seen throughout a nonaneurysmal abdominal aort a and branches. Incidental note of a retroaortic left renal vein. Musculoskeletal / Body wall: No acute or aggressive osseous abnormality. Mild degenerative changes of spine. IMPRESSION: 1. The terminal ileum does show mild thickening without focal abnormality or obstruction. This nonspe cific and could be due to very early focal enteritis or inflammatory bowel disease. There is some mil d haziness about the cecum and proximal ascending colon without wall thickening or other focal abnorm ality to the colon. This nonspecific at this point. Possibly very early colitis. 2. Small amount of free fluid in the pelvis, nonspecific at this time. 3. Sigmoid diverticulosis without radiographic indication of diverticulitis. 4. Other chronic findings as above. Report Dictated By: Mark Wylie at 01/04/2018 12:18 PM Report E-Signed By: Mark Wylie at 01/04/2018 12:28 PM WSN:[id number]
[2018-01-04] MEDS: NS(*) 0.9% 1000 ML BAG 1,000 ML IV PRN ×2 (13:34→13:36)
[2018-01-04] MEDS: LEVOFLOXACIN/D5W*500 MG/100 ML 100 ML IVPB SCH (13:56)
[2018-01-04 17:01] VITALS: BP 144/89
[2018-01-05] MEDS: ACETAMINOPHEN 500 MG TAB PO SCH ×3 (00:34→17:48)
[2018-01-05] MEDS: NS(*) 0.9% 1000 ML BAG 1,000 ML IV PRN ×3 (00:34→22:34)
[2018-01-05] MEDS: LEVOTHYROXINE SOD 0.1 MG TAB PO SCH (06:19)
[2018-01-05 07:45] VITALS: BP 154/87
[2018-01-05] MEDS: PROMETHAZINE HCL 25 MG TAB PO PRN ×2 (07:49→14:47)
[2018-01-05] MEDS: oxyCODONE HCL 5 MG CAP PO PRN ×2 (08:32→20:56)
[2018-01-05] MEDS: POLYETHYLENE GLYCOL 17 GM PKT PO SCH (09:00)
[2018-01-05] MEDS: amLODIPine BESYL(*) 5 MG TAB PO SCH (09:16)
[2018-01-05] MEDS: DOCUSATE SODIUM 100 MG CAP PO SCH ×2 (09:16→20:55)
[2018-01-05] MEDS: RIVAROXABAN 10 MG TAB PO SCH (09:16)
--- NOTE | 2018-01-05 10:00 | Medical Nutrition Therapy ---
Nutrition Anthropometrics Height (Inches): 70 (stated) Weight (Pounds): 250 (was 240 on standing scale 6/5 prior to surgery) Weight (Calculated Kilograms): 113.398 BMI: 36 Jayson Nutrition Score: Adequate Jayson Nutrition Risk Score: 19 Dietary Referral Nutrition Risk Factors: Nutrition Risk Comment: Physical Findings Physical Appearance: Obese BMI 30-39 Skin Appearance Skin Appearance: Edema Edema Location Modifier: Left Edema Location: Lower leg Type of Edema: Degree of Edema: 2+ Gastrointestinal Symptoms GI Symtoms: Appetite Changes, Constipation Tube Present: Bowel Sounds: Recent Bowel Pattern: Constipated Stool Characteristics: Nutritional Diagnosis Nutritional Risk Acuity 3: Fair Appetite, Nausea Past Medical History: Hypothyroid, HTN, s/p bilateral knee replacement Nutritional Acuity: 3-Mild Nutrition Diagnosis: Increased Nutrient Needs Nutrition Etiology: Physiological Causes Nutrition Problem/Etiology/Sym: AEB dx bilateral knee replacement Adjusted Energy Requirement Re: 2440 (HB- adj for obesity X 1.1 SF) Protein Requirement: 93 (1.2gm/kg IBW) Fluid Requirement: 2825 (25ml/kg) Diet Type: Diet as Tolerated DRE/REG Nutrition Intervention: Cont diet as ordered, Encourage intake, HS snack Nutrition Monitoring & Eval RD Patient Assessment Time: [address] Assessment Type: RD Screen Patient Nutrition Acuity: 3-Mild Follow Up Date: Jan 13, 2018 Nutritional Comment: 6/7 Pt admitted post bilateral knee replacement. Intake averaged 58% on med unit with nausea reported. Wt is up 10# in 2 day post surgery. Probably associated with fluild recieved post surgery or difference in scale. Anticipate pt loss to pt's admitting wt of 240#. Will cont to monitor and encourage intake. 01/05 Pt's diet has changed from from regular to clear liquids and gluten free, consuming 50%. Pt is experiencing N/V and has been dry heaving. Pt has been given aggressive treatment for his constipation. Pt has been experiencing abdominal pain. Alb (2.9), total bilirubin (1.7) and WBC (13.2). KUB on (01/02) had shown possible ileus. Will continue to monitor pt progress, labs, diet advancement and encourage intake. -ROCKY MONTANAVICKEY Jan 05, 2018 09:37
[2018-01-05] MEDS: LEVOFLOXACIN/D5W*500 MG/100 ML 100 ML IVPB SCH (13:47)
[2018-01-05] MEDS: PROMETHAZINE 25 MG/ML 1 ML AMP IVP PRN ×2 (16:48→22:37)
[2018-01-05 17:30] VITALS: BP 145/93
[2018-01-06] MEDS: ACETAMINOPHEN 500 MG TAB PO SCH ×3 (01:00→17:14)
[2018-01-06] MEDS: PROMETHAZINE 25 MG/ML 1 ML AMP IVP PRN ×2 (05:03→12:44)
[2018-01-06 05:33] LABS: PLATELET COUNT, AUTOMATED 324 K/uL (150-450)
[2018-01-06] MEDS: LEVOTHYROXINE SOD 0.1 MG TAB PO SCH (06:25)
[2018-01-06] MEDS: oxyCODONE HCL 5 MG CAP PO PRN ×3 (07:55→18:51)
[2018-01-06 08:29] VITALS: BP 141/90
[2018-01-06] MEDS: NS(*) 0.9% 1000 ML BAG 1,000 ML IV PRN ×2 (08:45→18:54)
[2018-01-06] MEDS: RIVAROXABAN 10 MG TAB PO SCH (08:46)
[2018-01-06] MEDS: DOCUSATE SODIUM 100 MG CAP PO SCH ×2 (08:47→20:44)
[2018-01-06] MEDS: amLODIPine BESYL(*) 5 MG TAB PO SCH (08:47)
[2018-01-06] MEDS: POLYETHYLENE GLYCOL 17 GM PKT PO SCH (08:47)
[2018-01-06] MEDS: PANTOPRAZOLE SOD 40 MG IV VIAL IVP SCH ×2 (12:31→20:44)
[2018-01-06] MEDS: LEVOFLOXACIN/D5W*500 MG/100 ML 100 ML IVPB SCH (14:07)
[2018-01-06 16:20] VITALS: BP 137/82
[2018-01-07] MEDS: ACETAMINOPHEN 500 MG TAB PO SCH ×3 (01:45→17:26)
[2018-01-07] MEDS: oxyCODONE HCL 5 MG CAP PO PRN ×3 (06:13→19:21)
[2018-01-07] MEDS: PROMETHAZINE 25 MG/ML 1 ML AMP IVP PRN (06:13)
[2018-01-07] MEDS: LEVOTHYROXINE SOD 0.1 MG TAB PO SCH (06:13)
[2018-01-07 07:30] VITALS: BP 146/90
[2018-01-07] MEDS: POLYETHYLENE GLYCOL 17 GM PKT PO SCH ×2 (09:00→09:17)
[2018-01-07] MEDS: RIVAROXABAN 10 MG TAB PO SCH (09:17)
[2018-01-07] MEDS: amLODIPine BESYL(*) 5 MG TAB PO SCH (09:17)
[2018-01-07] MEDS: DOCUSATE SODIUM 100 MG CAP PO SCH (09:17)
[2018-01-07] MEDS: PANTOPRAZOLE SOD 40 MG IV VIAL IVP SCH ×2 (09:18→20:42)
[2018-01-07] MEDS: NS(*) 0.9% 1000 ML BAG 1,000 ML IV PRN ×2 (13:16→21:57)
--- NOTE | 2018-01-07 15:52 | Hospitalist Progress Note ---
Subjective Progress Notes Subjective Overall a bit better. Physical Exam Vital Signs Date Time Temp Pulse Resp B/P (MAP) Pulse Ox O2 Delivery O2 Flow Rate FiO2 01/07/18 13:20 98.7 01/07/18 10:17 91 Room Air 01/07/18 07:30 90 22 146/90 (108) 01/04/18 07:30 Intake and Output 01/08/18 07:00 Intake Total 1859 ml Output Total 700 ml Balance 1159 ml IV Total 1859 ml Output Urine Total 700 ml # Voids 2 # Bowel Movements 1 General Appearance: Alert, Awake, No Acute Distress, Afebrile Neuro: No Gross deficits Cardiovascular: Regular Rate and Rhythm Respiratory: Clear to Auscultation GI: Other (Slightly distended, soft, nontender.) Extremities: Warm, Perfused Psych: Appropriate Mood & Affect Result Diagram: 01/06/1851601/06/18516 Assessment and Plan Problems: (1) Abdominal pain Status: Acute Assessment & Plan: CT showed colitis. Stool studies negative. Will DC antibiotics. WBC improved a bit. Still having loose stools. Will repeat a C diff and if negative, will order Imodium. Start a probiotic. (2) Status post bilateral knee replacements Status: Acute Assessment & Plan: Followed by Dr. Palma. He has no history of DVT or PE. We will switch him to Xarelto for DVT prophylaxis today, secondary to decreased mobility. He has been transferred to [facility] for further rehab. (3) Hypertension Status: Chronic Assessment & Plan: He is on chronic treatment with amlodipine and hydrochlorothiazide. He will continue amlodipine with hold parameters. We will hold hydrochlorothiazide. Watch BP's. (4) Hypothyroidism Status: Chronic Assessment & Plan: He is on chronic treatment with levothyroxine. Time Spent on Plan of Care: < 30 min ELIF MCPHERSON MD Jan 07, 2018 15:52
[2018-01-07 16:20] VITALS: BP 139/91
[2018-01-07] MEDS: LACTOBACILLUS ACIDOPHILUS TAB PO SCH (17:26)
[2018-01-08] MEDS: oxyCODONE HCL 5 MG CAP PO PRN ×4 (01:28→23:30)
[2018-01-08] MEDS: ACETAMINOPHEN 500 MG TAB PO SCH ×3 (01:28→17:07)
[2018-01-08] MEDS: NS(*) 0.9% 1000 ML BAG 1,000 ML IV PRN ×2 (05:53→13:53)
[2018-01-08] MEDS: LEVOTHYROXINE SOD 0.1 MG TAB PO SCH (05:54)
[2018-01-08 06:43] LABS: PLATELET COUNT, AUTOMATED 375 K/uL (150-450)
[2018-01-08] MEDS: amLODIPine BESYL(*) 5 MG TAB PO SCH (08:12)
[2018-01-08 08:30] VITALS: BP 124/78
[2018-01-08] MEDS: RIVAROXABAN 10 MG TAB PO SCH (08:53)
[2018-01-08] MEDS: LACTOBACILLUS ACIDOPHILUS TAB PO SCH ×2 (08:53→17:07)
[2018-01-08] MEDS: PANTOPRAZOLE SOD 40 MG IV VIAL IVP SCH ×2 (08:54→20:34)
[2018-01-08] MEDS: POLYETHYLENE GLYCOL 17 GM PKT PO SCH (08:59)
[2018-01-08 15:28] VITALS: BP 134/84
--- NOTE | 2018-01-08 17:21 | Medical Nutrition Therapy ---
Nutritional Education Nutrition Education Topic: Gluten Free Learning Readiness: Interested Teaching Methods: Discussion, Handout Response to Teaching: Verbalize understanding Teaching Recipient: Patient Nutrition Counseling: Pt was changed to gluten free diet to see if gluten could be causing colitis. Spoke with pt about gluten free diet and what that meant. Went over handout with pt. Pt was happy to hear he was no longer on clear liquids and asked questions regarding his new gluten free diet. Provided nutrition education regarding his new gluten free diet. Defined what gluten was, what food products it is found in, and why it might cause inflammation in some individuals. Pt was interested in the information provided to him. Gave pt menu that had shown which foods he is able to eat and what foods are gluten free, or have a gluten free option. Pt accepted both hand outs, menu, and appreciated the nutrition education given. -VICKEY OLIVEIRA Jan 08, 2018 17:18
[2018-01-09] MEDS: ACETAMINOPHEN 500 MG TAB PO SCH ×3 (01:00→17:14)
[2018-01-09] MEDS: NS(*) 0.9% 1000 ML BAG 1,000 ML IV PRN (05:47)
[2018-01-09] MEDS: oxyCODONE HCL 5 MG CAP PO PRN ×4 (05:47→23:04)
[2018-01-09] MEDS: LEVOTHYROXINE SOD 0.1 MG TAB PO SCH (05:47)
[2018-01-09 08:00] VITALS: BP 144/84
[2018-01-09] MEDS: PANTOPRAZOLE SOD 40 MG IV VIAL IVP SCH ×2 (08:28→20:43)
[2018-01-09] MEDS: LACTOBACILLUS ACIDOPHILUS TAB PO SCH ×2 (08:29→17:14)
[2018-01-09] MEDS: amLODIPine BESYL(*) 5 MG TAB PO SCH (08:29)
[2018-01-09] MEDS: RIVAROXABAN 10 MG TAB PO SCH (08:29)
[2018-01-09] MEDS: POLYETHYLENE GLYCOL 17 GM PKT PO SCH (09:00)
[2018-01-09 15:38] VITALS: BP 134/80
[2018-01-10] MEDS: ACETAMINOPHEN 500 MG TAB PO SCH ×3 (01:00→16:25)
[2018-01-10] MEDS: LEVOTHYROXINE SOD 0.1 MG TAB PO SCH (05:26)
[2018-01-10] MEDS: oxyCODONE HCL 5 MG CAP PO PRN ×3 (05:26→21:03)
[2018-01-10] MEDS: NS(*) 0.9% 1000 ML BAG 1,000 ML IV PRN (05:30)
[2018-01-10 07:22] LABS: PLATELET COUNT, AUTOMATED 440 K/uL (150-450)
[2018-01-10] MEDS: POLYETHYLENE GLYCOL 17 GM PKT PO SCH (08:57)
[2018-01-10] MEDS: amLODIPine BESYL(*) 5 MG TAB PO SCH (08:57)
[2018-01-10] MEDS: LACTOBACILLUS ACIDOPHILUS TAB PO SCH ×2 (08:58→16:25)
[2018-01-10] MEDS: RIVAROXABAN 10 MG TAB PO SCH (08:58)
[2018-01-10] MEDS ORDERED: PANTOPRAZOLE SOD 40 MG TABEC PO SCH (09:00)
[2018-01-10] MEDS: PROMETHAZINE 25 MG/ML 1 ML AMP IVP PRN (09:04)
[2018-01-10 09:19] VITALS: BP 132/88
[2018-01-10] MEDS ORDERED: PROMETHAZINE HCL 25 MG TAB PO PRN (13:45)
[2018-01-10] MEDS: CYCLOBENZAPRINE HCL 10 MG TAB PO PRN ×2 (15:41→23:50)
[2018-01-10 16:15] VITALS: BP 130/82
[2018-01-11] MEDS: oxyCODONE HCL 5 MG CAP PO PRN ×5 (01:26→22:11)
[2018-01-11] MEDS: ACETAMINOPHEN 500 MG TAB PO SCH ×3 (01:26→17:38)
[2018-01-11] MEDS: LEVOTHYROXINE SOD 0.1 MG TAB PO SCH (05:35)
[2018-01-11] MEDS: CYCLOBENZAPRINE HCL 10 MG TAB PO PRN ×2 (08:03→17:40)
[2018-01-11] MEDS: LACTOBACILLUS ACIDOPHILUS TAB PO SCH ×2 (08:46→17:38)
[2018-01-11] MEDS: POLYETHYLENE GLYCOL 17 GM PKT PO SCH ×2 (08:46→08:48)
[2018-01-11] MEDS: amLODIPine BESYL(*) 5 MG TAB PO SCH (08:47)
[2018-01-11] MEDS: RIVAROXABAN 10 MG TAB PO SCH (08:47)
[2018-01-11] MEDS: PANTOPRAZOLE SOD 40 MG TABEC PO SCH (08:47)
[2018-01-11 08:55] VITALS: BP 121/85
[2018-01-11 17:20] VITALS: BP 127/79
[2018-01-12] MEDS: CYCLOBENZAPRINE HCL 10 MG TAB PO PRN ×3 (01:41→20:10)
[2018-01-12] MEDS: ACETAMINOPHEN 500 MG TAB PO SCH ×2 (01:41→08:30)
[2018-01-12] MEDS: LEVOTHYROXINE SOD 0.1 MG TAB PO SCH (06:13)
[2018-01-12] MEDS: oxyCODONE HCL 5 MG CAP PO PRN ×2 (06:13→10:20)
[2018-01-12 08:05] VITALS: BP 125/79
[2018-01-12] MEDS: PANTOPRAZOLE SOD 40 MG TABEC PO SCH (08:29)
[2018-01-12] MEDS: LACTOBACILLUS ACIDOPHILUS TAB PO SCH ×2 (08:30→17:51)
[2018-01-12] MEDS: amLODIPine BESYL(*) 5 MG TAB PO SCH (08:30)
[2018-01-12] MEDS: RIVAROXABAN 10 MG TAB PO SCH (08:30)
[2018-01-12] MEDS: POLYETHYLENE GLYCOL 17 GM PKT PO SCH (08:30)
--- NOTE | 2018-01-12 10:53 | Medical Nutrition Therapy ---
Nutrition Anthropometrics Height (Inches): 70.00 Height (Calculated Centimeters: 177.626168 Weight (Pounds): 243 Weight (Calculated Kilograms): 110.223 BMI: 36 Jayson Nutrition Score: Adequate Jayson Nutrition Risk Score: 19 Dietary Referral Nutrition Risk Factors: Nutrition Risk Comment: Physical Findings Physical Appearance: Obese BMI 30-39 Skin Appearance Skin Appearance: Edema Edema Location Modifier: Both Edema Location: Leg Type of Edema: Degree of Edema: 2+ Gastrointestinal Symptoms GI Symtoms: Nausea, Appetite Changes, Diarrhea, Change in Bowel Pattern Tube Present: Bowel Sounds: Recent Bowel Pattern: Constipated Stool Characteristics: Nutritional Diagnosis Nutritional Risk Acuity 3: Fair Appetite Past Medical History: Hypothyroid, HTN, s/p bilateral knee replacement Nutritional Acuity: 3-Mild Nutrition Diagnosis: Increased Nutrient Needs Nutrition Etiology: Physiological Causes Nutrition Problem/Etiology/Sym: AEB dx bilateral knee replacement Adjusted Energy Requirement Re: 2440 (HB- adj for obesity X 1.1 SF) Protein Requirement: 93 (1.2gm/kg IBW) Fluid Requirement: 2825 (25ml/kg) Diet Type: Diet as Tolerated DRE/REG Nutrition Intervention: Cont diet as ordered, Encourage intake, HS snack Food Likes: chx broth at 1/2 strength.. Nutrition Monitoring & Eval RD Patient Assessment Time: [address] Assessment Type: RD Re-Assessment Patient Nutrition Acuity: 3-Mild Follow Up Date: Jan 20, 2018 Nutritional Comment: 01/01 Pt admitted post bilateral knee replacement. Intake averaged 58% on med unit with nausea reported. Wt is up 10# in 2 day post surgery. Probably associated with fluild recieved post surgery or difference in scale. Anticipate pt loss to pt's admitting wt of 240#. Will cont to monitor and encourage intake. 01/05 Pt's diet has changed from from regular to clear liquids and gluten free, consuming 50%. Pt is experiencing N/V and has been dry heaving. Pt has been given aggressive treatment for his constipation. Pt has been experiencing abdominal pain. Alb (2.9), total bilirubin (1.7) and WBC (13.2). KUB on (01/02) had shown possible ileus. Will continue to monitor pt progress, labs, diet advancement and encourage intake. -MT 01/12 Pt continues on regular gluten free diet with 100% oral intake. Pt continues to have low alb (2.7) encourage protein intake to help with healing. Pt has low H/H and RBC (3.66). Pt BM function has return to normal and has been refusing Miralax. No new reports documented at this time. Will continue to monitor pt progress, labs and encourage intake. -VICKEY OLIVEIRA Jan 12, 2018 09:44
[2018-01-12 15:59] VITALS: BP 120/77
[2018-01-12] MEDS: traMADol 50 MG TAB PO PRN ×2 (16:38→22:38)
[2018-01-13] MEDS: CYCLOBENZAPRINE HCL 10 MG TAB PO PRN ×2 (05:15→13:44)
[2018-01-13] MEDS: LEVOTHYROXINE SOD 0.1 MG TAB PO SCH (05:15)
[2018-01-13] MEDS: traMADol 50 MG TAB PO PRN ×2 (05:15→14:09)
[2018-01-13 07:35] VITALS: BP 122/80
[2018-01-13] MEDS: PANTOPRAZOLE SOD 40 MG TABEC PO SCH (08:40)
[2018-01-13] MEDS: RIVAROXABAN 10 MG TAB PO SCH (08:40)
[2018-01-13] MEDS: LACTOBACILLUS ACIDOPHILUS TAB PO SCH ×2 (08:40→17:21)
[2018-01-13] MEDS: POLYETHYLENE GLYCOL 17 GM PKT PO SCH (08:52)
[2018-01-13] MEDS: amLODIPine BESYL(*) 5 MG TAB PO SCH (08:52)
[2018-01-13 15:26] VITALS: BP 135/83
[2018-01-14] MEDS: traMADol 50 MG TAB PO PRN ×3 (03:18→16:17)
[2018-01-14] MEDS: LEVOTHYROXINE SOD 0.1 MG TAB PO SCH (05:44)
[2018-01-14 08:00] VITALS: BP 120/84
[2018-01-14] MEDS: amLODIPine BESYL(*) 5 MG TAB PO SCH (08:38)
[2018-01-14] MEDS: PANTOPRAZOLE SOD 40 MG TABEC PO SCH (08:41)
[2018-01-14] MEDS: LACTOBACILLUS ACIDOPHILUS TAB PO SCH ×2 (08:41→16:17)
[2018-01-14] MEDS: RIVAROXABAN 10 MG TAB PO SCH (08:41)
[2018-01-14] MEDS: POLYETHYLENE GLYCOL 17 GM PKT PO SCH (09:00)
--- NOTE | 2018-01-14 11:00 | OT ECF NOTE ---
Type of Note: Discharge Note Primary Medical Diagnosis: Bilateral Total Knee Replacement DOS: 12/29/[address] Palma Occupational Therapy Evaluation Date: 01/02/18 SUBJECTIVE: Prior Hospitalization: [facility]Surg 12/29/17 thru 01/01/18 Prior Level of Function: Independent with all ADLs/IADLs. Currently working and helping care for 8 year old son and 80 year old mother. Prior Living Status: Single level house, Living with family Community Services: No known needs Home Accessibility: Stairs with rails All needs on one level Tub/shower combination Equipment Owned: Front wheeled walker Toilet riser Sock aid/fruit inspector Extended tub transfer bench Hospital bed Medical Complications/Past Medical History: Hypertension, Hypothyroidism Psychosocial Support: Family in [place], [place] where pt resides Pain Scale (0-10): Decreased pain reporting in sessions prior to discharge OBJECTIVE: Strength: MMT: Right Left Shoulder Flexion WFL WFL Elbow Flexion WFL WFL Wrist Extension WFL WFL Plant Director WFL WFL (5= normal, 4= good, 3= fair, 2= poor, 1= trace) ROM: Both upper extremities, WFL Sensation: Intact, No concerns Functional Transfer: Assistive Device: Front wheeled walker Transfer Ability: Mod (I) ADL: Upper body dressing: Assistive device: None Upper body dressing ability: Independent Lower body dressing: Assistive device: Sock aid/fruit inspector Lower body dressing ability: Mod (I) Toileting: Assistive device: Raised toilet seat, grab bars Toileting ability: Mod (I) Grooming/hygiene: Assistive device: Standing Grooming ability: Independent Bathing: Assistive device: Extended tub transfer bench Bathing ability: Mod (I) Standardized Assessment: La Index of Activities of Daily Livin/20 at initial evaluation (01/02). 19/20 at discharge (01/14/18). ASSESSMENT: At [facility], Uriah was (I) with all ADLs/IADLs including working and caring for family. He has met all skilled OT goals. Pt presents with no further questions/concerns for OT at this time and plans to discharge home Friday with services. Pt reports having obtained all necessary AE. Problem List/Current Limitations: Pain Decreased ROM Short Term Goals: 1) Pt will be Mod (I) UB/LB dressing. GOAL MET 2) Pt will be Mod (I) toileting. GOAL MET 3) Pt will be (I) grooming/hygiene. GOAL MET 4) Pt will be Mod (I) bathing. GOAL MET 5) Pt La Index of ADLs score will improve by 2 points. GOAL MET Jail Goals: Return home Patient Goals: "Move better" Rehabilitation Prognosis: Good Barriers to Discharge: Pain PLAN: The patient will discharge home Friday with assist from family/friends and services. Thank you for this referral. If you have any questions, concerns, or comments about this report or plan, please contact me at . Yuridia Laura MS, OTR/L Occupational Therapist [facility]
[2018-01-14] MEDS ORDERED: ASPI-764 PO (14:39)
--- NOTE | 2018-01-14 14:55 | Hospitalist Progress Note ---
Subjective Progress Notes Subjective The patient's abdominal symptoms resolved after he resumed his usual gluten free diet. Physical Exam Vital Signs Date Time Temp Pulse Resp B/P (MAP) Pulse Ox O2 Delivery O2 Flow Rate FiO2 01/14/18 09:00 93 Room Air 01/14/18 08:00 98.2 65 18 120/84 (96) Intake and Output 01/15/18 06:59 Intake Total 220 ml Balance 220 ml Intake Oral 220 ml # Voids 1 General Appearance: Alert, Awake, No Acute Distress Eyes: PERRLA Cardiovascular: Regular Rate and Rhythm Respiratory: Clear to Auscultation GI: Soft and Non-Tender Extremities: Warm, Perfused Integumentary: Other (Both knees with surgical wounds bandaged. No drainage noted.) Psych: Appropriate Mood & Affect Result Diagram: 01/10/18 0700 01/10/18 07 Assessment and Plan Problems: (1) Abdominal pain Status: Acute Assessment & Plan: CT showed colitis. Stool studies were negative. Antibiotics DC'd. The patient resumed a gluten free diet and his symptoms resolved. (2) Status post bilateral knee replacements Status: Acute Assessment & Plan: Followed by Dr. Palma. He has no history of DVT or PE. He was switched from ASA to Xarelto for DVT prophylaxis, secondary to decreased mobility. He was transferred to [facility] for further rehab. He is now moving much better. He will have completed 15 days of Xarelto at the time of discharge. Will have him continue aspirin for another 2 -3 weeks on discharge. (3) Hypertension Status: Chronic Assessment & Plan: He is on chronic treatment with amlodipine and hydrochlorothiazide. He will continue amlodipine with hold parameters. We will hold hydrochlorothiazide. Watch BP's. (4) Hypothyroidism Status: Chronic Assessment & Plan: He is on chronic treatment with levothyroxine. Time Spent on Plan of Care: < 30 min ELIF MCPHERSON MD Jan 14, 2018 14:55
[2018-01-14 16:15] VITALS: BP 139/91
[2018-01-14] MEDS: CYCLOBENZAPRINE HCL 10 MG TAB PO PRN (20:47)
[2018-01-15] MEDS: traMADol 50 MG TAB PO PRN ×3 (05:28→21:28)
[2018-01-15] MEDS: LEVOTHYROXINE SOD 0.1 MG TAB PO SCH (05:29)
[2018-01-15 07:45] VITALS: BP 125/81
[2018-01-15] MEDS: LACTOBACILLUS ACIDOPHILUS TAB PO SCH ×2 (08:36→16:43)
[2018-01-15] MEDS: PANTOPRAZOLE SOD 40 MG TABEC PO SCH (08:36)
[2018-01-15] MEDS: RIVAROXABAN 10 MG TAB PO SCH (08:36)
[2018-01-15] MEDS: POLYETHYLENE GLYCOL 17 GM PKT PO SCH (08:45)
[2018-01-15] MEDS: amLODIPine BESYL(*) 5 MG TAB PO SCH (08:46)
[2018-01-15 15:00] VITALS: BP 117/77
[2018-01-15] MEDS: CYCLOBENZAPRINE HCL 10 MG TAB PO PRN (21:28)
[2018-01-16] MEDS: LEVOTHYROXINE SOD 0.1 MG TAB PO SCH (05:20)
[2018-01-16 08:00] VITALS: BP 130/85
[2018-01-16] MEDS: amLODIPine BESYL(*) 5 MG TAB PO SCH (08:37)
[2018-01-16] MEDS: LACTOBACILLUS ACIDOPHILUS TAB PO SCH (08:39)
[2018-01-16] MEDS: RIVAROXABAN 10 MG TAB PO SCH (08:39)
[2018-01-16] MEDS: PANTOPRAZOLE SOD 40 MG TABEC PO SCH (08:39)
[2018-01-16] MEDS: POLYETHYLENE GLYCOL 17 GM PKT PO SCH (09:00)
[2018-01-16] MEDS: traMADol 50 MG TAB PO PRN (11:33)
--- NOTE | 2018-01-16 12:55 | PT ECF NOTE ---
Type of Note: Discharge Summary Primary Medical Diagnosis: B TKA 12/29/[address] Palma Physical Therapy Discharge Date: 01/16/18 SUBJECTIVE: Prior Hospitalization: [facility] 12/29-01/01/18 Prior Level of Function: Independent with functional mobility, ADLs, and IADLs. 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 Prior Living Status: Single level house, Living with family Community Services: No known needs Home Accessibility: Stairs with rails, All needs on one level, Tub/shower combination Equipment Owned: Front wheeled walker, Toilet riser Medical Complications/Past Medical History: Please see EMR Psychosocial Support: unknown Pain Scale (0-10): pain level not given at time of d/c OBJECTIVE: Strength: R) LE Hip Flexion: 3/5 Knee Extension: 3+/5 Knee Flexion: 3/5 Ankle DF: 5/5 Ankle PF: 5/5 L) LE Hip Flexion: 3/5 Knee Extension: 3-/5 Knee Flexion: 3/5 Ankle DF: 5/5 Ankle PF: 5/5 ROM: R) Knee PROM: 2-88 degrees L) Knee PROM: 3-80 degrees Bed Mobility: Daniela Transfers: Daniela with RW Gait: 325' with RW and Daniela TU seconds ASSESSMENT: The patient has made signficant functional gains despite initial medical difficulties and is safe to d/c home from a mobility standpoint when medically appropriate. He is Daniela with all functional mobility with use of RW, and demonstrates the ability to safely function at home. It is recommended that he receive [facility] services upon d/c. Problem List/Current Limitations: Pain, Decreased activity tolerance, Decreased strength, Decreased ROM, Decreased balance Short Term Goals: (goals met) 1. Mod I bed mobility. 2. Mod I transfers. 3. Mod I gait x 150' with appropriate assistive device. 4. Ascend/descend 4 stairs SBA. 5. Independent use of CPM. Restaurant Lead Goals: Return home at Mod I level. (met) Patient Goals: Return home as independent as possible. (met) PLAN: The patient will discharge home with HHC services in place and use of RW. Thank you for this referral. If you have any questions, concerns, or comments about this report or plan, please contact me at . Ligia Rojas, PT, DPT MTDD
--- NOTE | 2018-01-27 15:10 | DISCHARGE SUMMARY ---
DATE OF ADMISSION: January 01, 2018 DATE OF DISCHARGE: January 16, 2018 HISTORY Patient is a 52-year-old male status post bilateral total knee arthroplasty. He is admitted to the [facility] for further rehabilitation. He progressed in a fairly slow manner. By the day of discharge, the wounds were clean, dry, and intact. He was neurologically intact. Therapy will be continued as an outpatient basis. The hospitalist team will transfer his medical issues. We are planning to see him in our [place] clinic in the next one to two weeks. Zipline wound closures had already been removed. His pain was well controlled. PRINCIPAL DIAGNOSIS Status post bilateral total knee arthroplasty. PRINCIPAL PROCEDURE Rehabilitation. [facility]
== END 2018-01-16 12:20 | disposition home health service (06) | DRG 561 ==
LOC: SWB 13:35
PROVIDERS: ADMIT Orthopaedic Surgery; ATTEND Orthopaedic Surgery
DX: Z47.1 Aftercare following joint replacement surgery (principal); I10 Essential (primary) hypertension; E03.9 Hypothyroidism, unspecified; K52.9 Noninfective gastroenteritis and colitis, unspecified; Z96.653 Presence of artificial knee joint, bilateral
CPT/HCPCS: 36415; 74018; 74177; 81001; 82040; 82150; 82247; 82310; 82374; 82435; 82565; 82947; 83630; 83690; 84075; 84132; 84155; 84295; 84450; 84460; 84520; 85025; 87045; 87088; 87205; 87324; 87449; 97161; 97165; C9113; J1956; J2550; J7030; J7040; Q0169; Q9967; S0119